=== PATIENT | male | born 1990 | race Caucasian/White ===

== ENCOUNTER 2016-11-24 01:16 | Emergency (ER) | payer SELFPAY ==
[~2016-11-24] VITALS: Ht 177.8 cm; Wt 56.7 kg
--- NOTE | 2016-11-24 01:16 | NUR ---
PATIENT BIB [facility] TO ER OF2.
[2016-11-24 01:20] VITALS: BP 124/78
--- NOTE | 2016-11-24 01:30 | NUR ---
26 Y MALE [facility] [employer] FOR PREBOOK. HX ANXIETY, DEPRESSION. CONDITION TO BE EVALUATED BY ERMD.
--- NOTE | 2016-11-24 02:36 | NUR ---
Garrett georges in [facility] - 11/24/16 at 0236 by [facility] PATIENT TO ER OF2.
--- NOTE | 2016-11-24 02:36 | NUR ---
PATIENT BEING EVALUATED BY DR. PADILLA.
[2016-11-24 02:50] VITALS: BP 124/78
--- NOTE | 2016-11-24 02:50 | NUR ---
PATIENT BIB [facility] [employer]. PATIENT EXAMINED BY DR PADILLA. PATIENT MEDICALLY CLEARED AND RELEASED IN CUSTODY IN STABLE CONDITION. ORIGINAL PRE-BOOK FORM GIVEN TO OFFICER Nery WHITMORE [id number].
== END 2016-11-24 02:50 ==
LOC: MED 01:16
DX: F41.9 Anxiety disorder, unspecified (principal); F32.9 Major depressive disorder, single episode, unspecified; F17.200 Nicotine dependence, unspecified, uncomplicated
CPT/HCPCS: 99284

== ENCOUNTER 2018-05-13 18:38 | Emergency (ER) | payer MEDICAID ==
[~2018-05-13] VITALS: Ht 175.3 cm; Wt 63.5 kg
[2018-05-13 18:45] VITALS: BP 143/187
--- NOTE | 2018-05-13 19:10 | NUR ---
BIB EMS FROM [facility]RE[facility] WITH C/O "I FELL LIKE I'M GOING TO " AFTER SMOKING MARIJUANA AND USING METH; DENIES HARMING HIMSELF OR OTHERS
[2018-05-13] MEDS ORDERED: NACL 0.9% 3,000 ML IV ONE (20:05)
[2018-05-13] MEDS ORDERED: LORazepam 1 MG TAB PO ONE (20:05)
[2018-05-13 20:30] LABS: BASOPHILS # (AUTO) 0.2 K/uL (0.00-0.22); BASOPHILS % (AUTO) 1.8 % (0.0-2.0); EOSINOPHILS # (AUTO) 0.1 K/uL (0-0.4); EOSINOPHILS % (AUTO) 1.1 % (0.0-4.0); HEMATOCRIT 46.8 % (36-52); HEMOGLOBIN 15.2 g/dL (12.0-18.0); LYMPHOCYTES # (AUTO) 0.9 K/uL (2.0-11.5); MEAN CORPUSCULAR HEMOGLOBIN 29 pg (27-31); MEAN CORPUSCULAR HGB CONC 33 g/dL (33-37); MEAN CORPUSCULAR VOLUME 89.6 fL (80-94); MONOCYTES # (AUTO) 0.7 K/uL (0.8-1.0); MONOCYTES % (AUTO) 7.3 % (1.7-9.3); NEUTROPHILS # (AUTO) 8.2 K/uL (1.8-7.7); NEUTROPHILS % (AUTO) 80.8 % (42.2-75.2); PLATELET COUNT (AUTO) 381 K/uL (140-450); RED BLOOD CELL COUNT(AUTO) 5.22 MIL/uL (4.20-6.10); RED CELL DISTRIBUTION WIDTH 14.5 % (11.6-13.7); WHITE BLOOD COUNT (AUTO) 10.2 K/uL (4.8-10.8)
[2018-05-13 20:41] LABS: ANION GAP 12.8 (8-16); CARBON DIOXIDE 28.6 mmol/L (21-32); CHLORIDE 99 mmol/L (98-107); GFR ARICAN-AMERICAN 117 mL/min (>90); GLUCOSE 104 mg/dL (74-106); POTASSIUM 4.4 mmol/L (3.5-5.1); SODIUM SERUM 136 mmol/L (136-145); UREA NITROGEN, BLOOD 15 mg/dL (7-18)
[2018-05-13 20:47] LABS: ALBUMIN 4.8 g/dL (3.4-5.0); ASPARTATE AMINOTRANSFERASE 24 U/L (15-37); SALICYLATE < 2.8 mg/dL (2.8-20.0); TOTAL BILIRUBIN 0.6 mg/dL (0.0-1.0)
[2018-05-13 20:48] LABS: ACETAMINOPHEN < 0.5 ug/ml (10-30)
[2018-05-13 21:28] LABS: BARBITURATE, URINE NEG. ng/ml (NEG <=200); BENZODIAZEPINE, URINE NEG. ng/mL (NEG <=200); CANNABINOID, URINE POS. ng/mL (NEG <=50); COCAINE, URINE NEG. ng/mL (NEG <=300); OPIATE, URINE NEG. ng/mL (NEG <=2000); PHENCYCLIDINE SCREEN,URINE NEG. ng/mL (NEG <=25)
--- NOTE | 2018-05-13 21:28 | NUR ---
CALLED PT MOTHER PER PT REQUEST. PT VERBALIZED CONSENT TO TELL HIS MOTHER THAT HE IS HERE AND WHY HE IS HERE. PT MOTHER WAS CALLED; SIRISHA. MOTHER STATES PT HAS A RESTRAINING ORDER AGAINST HER AND SHE WILL NOT BE ABLE TO COME TO [facility] ER.
--- NOTE | 2018-05-13 22:08 | NUR ---
Patient appears to be resting comfortably in bed. Vital Signs within normal limits. Respirations even and unlabored.
--- NOTE | 2018-05-13 22:31 | NUR ---
Patient discharged with v/s stable. Written and verbal after care instructions given and explained. Patient verbalized understanding. IV D/C; pressure and bandage applied, no swelling or redness noted. Ambulatory with steady gait. All questions addressed prior to discharge. Advised to follow up with PMD.
[2018-05-13 22:34] VITALS: BP 116/57
== END 2018-05-13 22:31 | disposition home or self-care (01) ==
LOC: MED 18:38
DX: F15.129 Other stimulant abuse with intoxication, unspecified (principal); F12.129 Cannabis abuse with intoxication, unspecified
CPT/HCPCS: 36415; 80053; 80305; 81002; 85025; 93005; 99284; G0480; G0482; J7030

== ENCOUNTER 2022-04-01 16:19 | Emergency (ER) | payer MEDICAID ==
[~2022-04-01] VITALS: Ht 172.7 cm; Wt 65.8 kg
[2022-04-01 16:38] VITALS: BP 122/79
--- NOTE | 2022-04-01 18:13 | NUR ---
PATIENT BIB [facility] [employer]. PATIENT EXAMINED BY DR. REYNA. PATIENT MEDICALLY CLEARED AND RELEASED IN CUSTODY IN STABLE CONDITION. ORIGINAL PRE-BOOK FORM GIVEN TO OFFICER.
== END 2022-04-01 18:13 ==
LOC: MED 16:19
DX: S09.90XA Unspecified injury of head, initial encounter (principal); Z02.89 Encounter for other administrative examinations; W01.198A Fall on same level from slipping, tripping and stumbling with subsequent striking against other object, initial encounter; Y93.89 Activity, other specified; Y92.89 Other specified places as the place of occurrence of the external cause; Y99.8 Other external cause status
CPT/HCPCS: 99283